=== PATIENT | female | born 1940 | race Caucasian/White ===

== ENCOUNTER 2020-04-11 16:23 | Emergency (ER) | payer OTHER ==
[~2020-04-11] VITALS: Ht 167.6 cm; Wt 81.7 kg
[2020-04-11] MEDS ORDERED: TYLENOL325 M1 PO (16:35)
[2020-04-11] MEDS ORDERED: GLIPIZIDE 10 MG10 MG PO (16:36)
[2020-04-11] MEDS ORDERED: ASA81BEC PO (16:36)
[2020-04-11] MEDS ORDERED: PRINIVIL10 MG PO (16:38)
[2020-04-11] MEDS ORDERED: JANUVIA50 MG PO (16:38)
[2020-04-11] MEDS ORDERED: REGLAN 5 MG TAB5 MG PO (16:39)
[2020-04-11] MEDS ORDERED: MULTIPLE VITAM1 EAC2 PO (16:39)
[2020-04-11] MEDS ORDERED: MOBIC7.5 MG PO (17:06)
[2020-04-11] MEDS ORDERED: TRAMADOL 50 MG50 MG PO (17:06)
[2020-04-11 17:40] VITALS: BP 176/84
== END 2020-04-11 17:40 ==
LOC: ER 16:23
DX: M54.5 Low back pain (principal); G89.29 Other chronic pain; R53.1 Weakness; I10 Essential (primary) hypertension; E78.5 Hyperlipidemia, unspecified; E11.9 Type 2 diabetes mellitus without complications; Z86.73 Personal history of transient ischemic attack (TIA), and cerebral infarction without residual deficits; Z79.899 Other long term (current) drug therapy; Z79.82 Long term (current) use of aspirin

== ENCOUNTER 2021-03-06 00:55 | Emergency (ER) | payer OTHER ==
[~2021-03-06] VITALS: Ht 167.6 cm; Wt 74.8 kg
--- NOTE | ~2021-03-06 | EMS ---
[address] [address] EMS Patient Care Report Name: DARLYN SHOOK Room #: DEP JACKSON Bullock#: [id number] Admission: 03/06/21 Attend Phys: Discharge: 03/06/21 Date of : 39 Report #: [id number] THIS REPORT FOR: //name// Report Transmitted: 03/07/2021 09:43 EMS Care Summary [place], [place]/[facility] Incident [id number] @ 03/06/2021 00:13 Incident Location [id number] [place] [address] 124 Patient DARLYN SHOOK Female, 80 Years 1940 Patient Address [address] [place], [place] [id number] Patient History Hypertension (HTN),Stroke/CVA,Hyperlipidemia,Depression,Chronic Pain, Patient Allergies No known allergies, Patient Medications Atorvastatin, Lisinopril, Sertraline, Aspirin, Tramadol, Chief Complaint ATRAUMATIC LLE PAIN Disposition Transported No Lights/[place] Dispatch Reason Sick Person Transported To [facility] Narrative UPON ARRIVAL WE FOUND OUR 80 YEAR OLD FEMALE PATIENT, WITH A HX OF CHRONIC PAIN AND A CVA WITH LEFT SIDE DEFICITS, LAYING IN BED AT [facility] ASSISTED LIVING WITH HER NURSE BY HER SIDE COMPLAINING OF ATRAUMATIC LLE CRAMPS/PAIN [address] [address] EMS Patient Care Report Name: DARLYN SHOOK Room #: DEP Ara#: [id number] Admission: 03/06/21 Attend Phys: Discharge: 03/06/21 Date of : 39 Report #: [id number] SINCE ABOUT 1800. STAFF STATES THEY ADMINISTERED BACLOFEN AND TRAMADOL TO THE PATIENT AT 2000 WITH NO RELIEF. STAFF REQUESTS THE PATIENT BE TRANSPORTED TO [facility] FOR EVALUATION. Initial Vitals @00:45P: 83,R: 18,BP: 137/83,Pain: 8/10,GCS: 15,SpO2: 95,Revised Trauma: 12, @00:54P: 80,R: 18,BP: 130/80,Pain: 8/10,GCS: 15,SpO2: 96,Revised Trauma: 12, Assessments @00:36MENTAL:Event Oriented,Time Oriented,Place Oriented,Person Oriented,SKIN:HEENT:Eyes: Right Pupil: 4-mm,Eyes: Left Pupil: 4-mm,Head/Face: No Abnormalities,Neck/Airway: No Abnormalities,LUNG SOUNDS:General: No Abnormalities,ABDOMEN:General: No Abnormalities,PELVIS//GI:No Abnormalities,EXTREMITIES:Left Leg: Other,Left Arm: No Abnormalities,Right Arm: No Abnormalities,Right Leg: No Abnormalities,PULSE:Radial: 2+ Normal,NEURO:Weakness Left-Sided, Impression Acute Pain, not elsewhere classified Procedures @00:36ALS AssessmentResponse: UnchangedSucceeded Timeline 00:12,Call Received 00:12,Dispatch Notified 00:13,Dispatched 00:15,En Route 00:32,On Scene 00:36,At Patient 00:36,ALS Assessment,Response: UnchangedSucceeded, 00:45,BP: 137/83 M,PULSE: 83,RR: 18 R,SPO2: 95 Ox,ETCO2: ,BG: ,PAIN: 8,GCS: 15, 00:46,Depart Scene 00:53,At Destination 00:54,BP: 130/80 M,PULSE: 80,RR: 18 R,SPO2: 96 Ox,ETCO2: ,BG: ,PAIN: 8,GCS: 15, 01:03,Call Closed Disclaimer v1.1 Copyright 2020 [employer] This EMS Care Summary contains data elements from the applicable legal record (which may be displayed differently). It is designed to provide pertinent information for the following purposes: continuity of care, clinical quality, and state data reporting. The complete legal record is available to ED staff and administrators of the receiving hospital in [employer]'s Patient Tracker. All data is provided "as is."
[~2021-03-06 00:55] MED LIST: ASA81BEC PO; GLIPIZIDE 10 MG10 MG PO; JANUVIA50 MG PO; MOBIC7.5 MG PO; MULTIPLE VITAM1 EAC2 PO; PRINIVIL10 MG PO; REGLAN 5 MG TAB5 MG PO; TRAMADOL 50 MG50 MG PO; TYLENOL325 M1 PO
[2021-03-06 02:26] LABS: BASOPHILS 0.7 % (0.0-2.0); EOSINOPHILS 2.6 % (0.0-3.0); HEMATOCRIT 31.2 % (37.0-47.0); HEMOGLOBIN 10.4 gm/dL (12.0-15.0); LYMPHOCYTES 20.2 % (24.0-44.0); MCHC 33.4 g/dL (28.0-37.0); MCV 86.9 fL (80.0-100.0); MONOCYTES 9.1 % (1.0-8.0); PLATELET COUNT 298 thou/uL (150-400); POLYS 67.4 % (36.0-66.0); RDW 14.4 % (10.5-14.5); WBC 8.9 thou/uL (4.0-11.0)
[2021-03-06 02:28] LABS: CREATININE 1.1 mg/dL (0.6-1.0); POTASSIUM 3.9 mmol/L (3.5-5.1)
[2021-03-06 02:34] LABS: ALBUMIN 2.3 g/dL (3.4-5.0); MAGNESIUM 1.9 mg/dL (1.8-2.4); TOTAL BILIRUBIN 0.3 mg/dL (0.2-1.0)
[2021-03-06 03:47] VITALS: BP 158/67
== END 2021-03-06 03:48 | disposition home or self-care (01) ==
LOC: ER 00:55
PROVIDERS: Emergency Medicine
DX: M79.605 Pain in left leg (principal); R25.2 Cramp and spasm; M62.831 Muscle spasm of calf; I10 Essential (primary) hypertension; E78.5 Hyperlipidemia, unspecified; E11.9 Type 2 diabetes mellitus without complications; Z79.899 Other long term (current) drug therapy

== ENCOUNTER 2021-03-13 21:16 | Emergency (ER) | payer OTHER ==
[~2021-03-13] VITALS: Ht 167.6 cm; Wt 74.8 kg
--- NOTE | ~2021-03-13 | EMS ---
[address] [address] EMS Patient Care Report Name: DARLYN SHOOK Room #: DEP JACKSON Bullock#: [id number] Admission: 03/13/21 Attend Phys: Discharge: 03/14/21 Date of : 39 Report #: [id number] THIS REPORT FOR: //name// Report Transmitted: 03/14/2021 13:06 EMS Care Summary [place], [place]/[facility] Incident [id number] @ 03/13/2021 20:30 Incident Location [id number] [place] [address] 124 Patient DARLYN SHOOK Female, 80 Years 1940 Patient Address [id number] [place] [address] 124 [place] [address] Patient History Stroke/CVA,Type 2 Diabetes, Patient Allergies No known allergies, Patient Medications Tramadol, Chief Complaint injured left shoulder Disposition Transported No Lights/[place] Dispatch Reason Falls Transported To [facility] Narrative FD Medic 36 arrived on scene to find a 80 y/o female laying prone and complaining of left shoulder pain. Patient stated she slid out of her chair and onto the ground, no loss of consciousness reported. PT had suffered a stroke [address] [address] EMS Patient Care Report Name: DARLYN SHOOK Room #: DEP Karla.#: [id number] Admission: 03/13/21 Attend Phys: Discharge: 03/14/21 Date of : 39 Report #: [id number] approximately 10 years prior, left side a effected. No gross deformity was noted to left shoulder. No other injuries noted, PT denied neck and back pain. PT was lifted to the ambulance cot by [facility] personnel without incident. Upon assessment of the injured shoulder patient said she "felt tingling" upon palpation, [place] staff reported this is not abnormal. Patient moved to ambulance and loaded without incident. Vitals obtained x2. En route continued to monitor the patient. No significant changes. RR to ER. Arrived, PT taken to ER #6 and moved to their bed without incident. Patient care and report to ER staff. Initial Vitals @20:59P: 91,R: 16,BP: 156/89,Pain: 2/10,GCS: 15,CO: 1,SpO2: 97,Revised Trauma: 12, @21:00P: 91,R: 14,BP: 159/78,Pain: 2/10,GCS: 15,CO: 0,SpO2: 95,Revised Trauma: 12, Assessments @21:03MENTAL:Event Oriented,Time Oriented,Person Oriented,Place Oriented,SKIN:HEENT:LUNG SOUNDS:ABDOMEN:PELVIS//GI:No Abnormalities,EXTREMITIES:Left Arm: Other,Left Arm: WANDA,Left Leg: No Abnormalities,Right Leg: No Abnormalities,PULSE:Radial: 2+ Normal,NEURO:No Abnormalities, Impression Injury of Shoulder or Upper Arm Procedures @20:43BLS AssessmentResponse: Unchanged@20:43ALS AssessmentResponse: UnchangedSucceeded@20:47StretcherResponse: Unchanged Timeline 20:29,Call Received 20:29,Dispatch Notified 20:30,Dispatched 20:31,En Route 20:41,On Scene 20:43,At Patient 20:43,BLS Assessment,Response: Unchanged 20:43,ALS Assessment,Response: UnchangedSucceeded, 20:47,Stretcher,Response: Unchanged 20:59,BP: 156/89 M,PULSE: 91,RR: 16 R,SPO2: 97 Ox,ETCO2: ,BG: ,PAIN: 2,GCS: 15, 21:00,BP: 159/78 M,PULSE: 91,RR: 14 R,SPO2: 95 Ox,ETCO2: ,BG: ,PAIN: 2,GCS: 15, 21:12,Depart Scene 21:12,At Destination 21:46,Call Closed Disclaimer [address] [address] EMS Patient Care Report Name: DARLYN SHOOK Room #: DEP JACKSON Bullock#: [id number] Admission: 03/13/21 Attend Phys: Discharge: 03/14/21 Date of : 39 Report #: [id number] v1.1 Copyright 2020 [employer] This EMS Care Summary contains data elements from the applicable legal record (which may be displayed differently). It is designed to provide pertinent information for the following purposes: continuity of care, clinical quality, and state data reporting. The complete legal record is available to ED staff and administrators of the receiving hospital in [email or web address]'s Patient Tracker. All data is provided "as is."
[2021-03-13] MEDS ORDERED: LIPITOR10 MG PO (21:23)
[2021-03-13] MEDS ORDERED: GLIPIZIDE 10 MG10 MG PO (21:23)
[2021-03-13] MEDS ORDERED: JANUVIA 50 MG T50 M1 PO (21:23)
[2021-03-13] MEDS ORDERED: OZOBAX5 MG/5 ML PO (21:24)
[2021-03-13] MEDS ORDERED: SERTRALINE HCL100 MG PO (21:24)
[2021-03-14 01:09] VITALS: BP 146/93
== END 2021-03-14 01:43 ==
LOC: ER 21:16
DX: M25.512 Pain in left shoulder (principal); R10.2 Pelvic and perineal pain; I10 Essential (primary) hypertension; E78.5 Hyperlipidemia, unspecified; E11.9 Type 2 diabetes mellitus without complications; Z79.2 Long term (current) use of antibiotics; Z79.82 Long term (current) use of aspirin; Z79.899 Other long term (current) drug therapy; Z86.73 Personal history of transient ischemic attack (TIA), and cerebral infarction without residual deficits; W05.0XXA Fall from non-moving wheelchair, initial encounter; Y93.89 Activity, other specified; Y92.89 Other specified places as the place of occurrence of the external cause; Y99.8 Other external cause status

== ENCOUNTER 2021-07-12 11:38 | Inpatient (IN) | payer OTHER ==
[~2021-07-12] VITALS: Ht 167.6 cm; Wt 66.2 kg
--- NOTE | ~2021-07-12 | EMS ---
[facility] [address] [place] [address] EMS Patient Care Report Name: DARLYN SHOOK Room #: REG JACKSON Bullock#: [id number] Admission: 07/12/21 Attend Phys: Discharge: Date of : 39 Report #: [id number] THIS REPORT FOR: //name// Report Transmitted: 07/12/2021 14:41 EMS Care Summary [place], [place]/[facility] Incident [id number] @ 07/12/2021 10:58 Incident Location [address] Patient DARLYN SHOOK Female, 80 Years 1940 Patient Address [id number] [place] [address] [address] [place] [address] Patient History Hypertension (HTN),Stroke/CVA,Hyperlipidemia, Patient Allergies No known allergies, Chief Complaint pt is less verbal than normal Disposition Transported No Lights/[place] Dispatch Reason Sick Person Transported To [facility] Narrative pt found seated in wheelchair. she is alert, sitting quietly on our arrival. staff states pt is "not herself" today. last known normal was yesterday @ 1400. they state pt is normally confused but talks and is usually angry. they state that today she will not talk and is acting "sweetly". pt has a L side deficit from a prior stroke. she also has a rash on her L arm and chest that [facility] [address] [place] [address] EMS Patient Care Report Name: DARLYN SHOOK Room #: REG Karla.#: [id number] Admission: 07/12/21 Attend Phys: Discharge: Date of : 39 Report #: [id number] has been spreading. they want labs done on pt and results will be faster if done thru the ER. As soon as we pick pt up and place her on the cot, she starts talking. she wants to know where she is going, does not want to go to hospital, is able to tell us President, VAULT INSTALLER, name, age, etc but also confused about other simple questions like month and her BD. pt denies pain or illess. pt mental state at that time appears to staff to be more normal but family and staff still want her checked. pt to be eval at [facility]. pt to unit, VS, transport w/o change. Initial Vitals @11:18P: 92,R: 18,BP: 140/80,Pain: 0/10,GCS: 13,Glucose: 208,SpO2: 96,Revised Trauma: 12, Assessments @11:06MENTAL:Confused,Other,Person Oriented,Place Oriented,SKIN:No Abnormalities,HEENT:Head/Face: No Abnormalities,LUNG SOUNDS:ABDOMEN:PELVIS//GI:EXTREMITIES:Left Arm: Paralysis,Left Arm: Other,PULSE:NEURO:Weakness Left-Sided,Other, Impression Altered Mental Status Procedures @11:06 ALS Assessment Response: Unchanged @11:15 3-Lead ECG Response: Unchanged @11:09 Stretcher Response: Unchanged Timeline 10:57,Call Received 10:57,Dispatch Notified 10:58,Dispatched 10:58,En Route 11:04,On Scene 11:06,At Patient 11:06,ALS Assessment,Response: Unchanged 11:09,Stretcher,Response: Unchanged 11:15,3-Lead ECG,Response: Unchanged 11:18,BP: 140/80 M,PULSE: 92,RR: 18 R,SPO2: 96 Ox,ETCO2: ,B,PAIN: 0,GCS: 13, 11:24,Depart Scene 11:35,At Destination 11:52,Call Closed Disclaimer v1.1 Copyright 2020 [employer] [facility] [address] [place] [address] EMS Patient Care Report Name: DARLYN SHOOK Room #: REG [facility].#: [id number] Admission: 07/12/21 Attend Phys: Discharge: Date of : 39 Report #: [id number] This EMS Care Summary contains data elements from the applicable legal record (which may be displayed differently). It is designed to provide pertinent information for the following purposes: continuity of care, clinical quality, and state data reporting. The complete legal record is available to ED staff and administrators of the receiving hospital in [employer]'s Patient Tracker. All data is provided "as is."
[2021-07-12 11:38] VITALS: BP 105/77
[~2021-07-12 11:38] MED LIST changes: +JANUVIA 50 MG T50 M1 PO; +LIPITOR10 MG PO; +OZOBAX5 MG/5 ML PO; +SERTRALINE HCL100 MG PO
[2021-07-12 12:08] LABS: URINE BLOOD 1+ (Negative); URINE CLARITY CLOUDY; URINE COLOR YELLOW; URINE GLUCOSE-RANDOM* NEGATIVE (Negative); URINE KETONES TRACE (Negative); URINE NITRITE-REFLEX NEGATIVE (Negative); URINE PROTEIN (DIPSTICK) 2+ (Negative); URINE SPECIFIC GRAVITY >= 1.030 (1.005-1.035); URINE UROBILINOGEN 0.2 E.U./dl (0.2-1.0)
[2021-07-12 12:10] LABS: URINE LEUKOCYTES-REFLEX 2+ (Negative)
[2021-07-12 12:11] LABS: ICTOTEST (BILI CONFIRMATORY) Negative (Negative); URINE BILIRUBIN NEGATIVE (Negative)
[2021-07-12 12:11] LABS: ABSOLUTE NEUTROPHILS 10.8 thou/uL (1.4-8.2); BASOPHILS 0.6 % (0.0-2.0); HEMATOCRIT 36.1 % (37.0-47.0); HEMOGLOBIN 11.7 gm/dL (12.0-15.0); LYMPHOCYTES 13.8 % (24.0-44.0); MCH 29.5 pg (26.0-34.0); MCHC 32.5 g/dL (28.0-37.0); MCV 90.7 fL (80.0-100.0); MONOCYTES 6.8 % (1.0-8.0); PLATELET COUNT 330 thou/uL (150-400); POLYS 77.8 % (36.0-66.0); RBC 3.98 mil/uL (4.20-5.00); RDW 15.1 % (10.5-14.5); WBC 13.9 thou/uL (4.0-11.0)
[2021-07-12 12:20] LABS: CALCIUM 9.5 mg/dL (8.5-10.1); CREATININE 2.5 mg/dL (0.6-1.0)
[2021-07-12 12:22] LABS: POTASSIUM 5.6 mmol/L (3.5-5.1)
[2021-07-12 12:26] LABS: ALBUMIN 2.6 g/dL (3.4-5.0); TOTAL BILIRUBIN 0.5 mg/dL (0.2-1.0); TOTAL PROTEIN 7.8 g/dL (6.4-8.2)
[2021-07-12 12:34] LABS: CASTS None Seen /LPF (None Seen); CRYSTALS None Seen /LPF (None Seen); SQUAMOUS 4-10 Moderate /LPF (0-3); URINE RBC 1-2 Rare /HPF (NONE SEEN); URINE WBC-REFLEX >25 Many /HPF (0-5)
[2021-07-12 12:55] LABS: CALCIUM 9.6 mg/dL (8.5-10.1); CREATININE 2.6 mg/dL (0.6-1.0)
[2021-07-12 12:56] LABS: POTASSIUM 4.5 mmol/L (3.5-5.1)
[2021-07-12 13:40] LABS: URINE BILIRUBIN 2+ (Negative); URINE BLOOD 3+ (Negative); URINE CLARITY CLOUDY; URINE COLOR YELLOW; URINE GLUCOSE-RANDOM* NEGATIVE (Negative); URINE KETONES TRACE (Negative); URINE NITRITE-REFLEX NEGATIVE (Negative); URINE PROTEIN (DIPSTICK) 1+ (Negative); URINE SPECIFIC GRAVITY >= 1.030 (1.005-1.035); URINE UROBILINOGEN 0.2 E.U./dl (0.2-1.0)
[2021-07-12 13:48] LABS: URINE LEUKOCYTES-REFLEX 2+ (Negative)
[2021-07-12] MEDS ORDERED: ACID CONTROLLER20 MG PO (13:56)
[2021-07-12 13:58] LABS: SQUAMOUS 4-10 Moderate /LPF (0-3)
[2021-07-12] MEDS ORDERED: TRAMADOL 50 MG50 MG PO (13:58)
[2021-07-12 14:00] LABS: CASTS None Seen /LPF (None Seen); URINE WBC-REFLEX >25 Many /HPF (0-5)
[2021-07-12 14:01] LABS: CRYSTALS None Seen /LPF (None Seen)
--- NOTE | 2021-07-12 16:05 | EKG ---
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 07/12/21 1605 [id number] [id number] Robert Lanier MD, FACC /EPI
[2021-07-12 16:30] LABS: FOLIC ACID 24.2 ng/mL (8.6-58.9)
[2021-07-13 03:39] LABS: ABSOLUTE NEUTROPHILS 6.1 thou/uL (1.4-8.2); BASOPHILS 1.1 % (0.0-2.0); EOSINOPHILS 1.6 % (0.0-3.0); HEMATOCRIT 30.1 % (37.0-47.0); LYMPHOCYTES 17.6 % (24.0-44.0); MCH 29.8 pg (26.0-34.0); MCV 90.2 fL (80.0-100.0); MONOCYTES 5.7 % (1.0-8.0); PLATELET COUNT 272 thou/uL (150-400); RBC 3.34 mil/uL (4.20-5.00); RDW 15.3 % (10.5-14.5); WBC 8.3 thou/uL (4.0-11.0)
[2021-07-13 03:58] LABS: ALBUMIN 2.3 g/dL (3.4-5.0); CALCIUM 8.6 mg/dL (8.5-10.1); PHOSPHORUS 3.6 mg/dL (2.5-4.9); POTASSIUM 3.8 mmol/L (3.5-5.1)
[2021-07-13 04:14] LABS: CREATININE 1.5 mg/dL (0.6-1.0)
[2021-07-13 05:07] LABS: GLYCOHEMOGLOBIN (HGB A1C) 7.1 % (4.8-5.6)
[2021-07-13 11:44] VITALS: BP 151/68
[2021-07-13 12:06] VITALS: BP 169/73
--- NOTE | 2021-07-13 12:18 | NUR ---
Pt transferred to unit from ED. Pt a&ox2. Screams continuosly. Son is DPOA and is at bedside. Son states the screaming is normal behavior for the patient but is has never been this bad. Pt has dementia baseline but is usually more coherent. IVF infusing. Pressure sore noticed on left heel. Will take picture for the chart and consult wound care. Admission completed with son's help. Call light within reach. Fall precautions in place. Will continue to monitor.
--- NOTE | 2021-07-13 16:19 | NUR ---
ORDERS RECEIVED FOR PT EVAL AND TREAT EARLIER HOWEVER JUST RECEIVED CANCEL PT ORDER FROM DR. GUTIÉRREZ. PER NOTES, Pt IS GOING COMFORT CARE.
[2021-07-13 17:56] VITALS: BP 146/96
--- NOTE | 2021-07-14 01:24 | NUR ---
UPON SHIFT REPORT, PT SLEEPING, PT SON AT BEDSIDE REPORTING PT WITHOUT PO INTAKE FOR DAYS AND INCREASED SLEEPING, PLAN OF CARE DISCUSSED INCLUDING PLACEMENT OF HAYS CATHETER, PT SON AGREEABLE TO PLACEMENT DUE TO PT HAVING INCREASED PAIN AND ANXIETY WITH REPOSITIONING. RADIO STATION ENGINEER TREATMENT COORDINATOR NOTIFIED, RECEIVED ORDERS TO PLACE HAYS FOR COMFORT CARE. UPON SHIFT ASSESSMENT, PT SLEEPING, AROUSES TO VERBAL AND TACTILE STIMULATION, FALLING BACK TO SLEEP EASILY. PT NOTED TO SCREAM, SAY 'LEAVE ME ALONE', TENSE, GRIMACE AND DRAW LEGS UP WITH TACTILE STIMULATION AND REPOSITIONING, FLACC OF 7. PT RECEIVING PRN IV MORHINE Q1HR AND PRN IV ATIVAN Q1HR ALONG WITH SCHEDULED IV ATIVAN Q6HR WHEN NOT SEDATED. 16FR HAYS CATHETER PLACED WITHOUT ISSUE, YELLOW URINE NOTED. RESTING IN BED THROUGHOUT SHIFT, FREQUENT REPOSITIONING ENCOURAGED, PT REFUSING REPOSITIONING DUE TO WORSENED PAIN, PT PREFERS TO LAY ON RIGHT SIDE, CONTRACTURES NOTED. SENSATION INTACT, CAPILLARY REFILL LESS THAN 3SEC, PERIPHERAL PULSES PALPABLE IN ALL EXTREMITIES. RASH NOTED TO SKIN, ON ABDOMEN, BACK, BOTTOM, AND RLE. SKIN CLEANSED, BARRIER CREAM APPLIED. PT ENCOURAGED TO NOTIFY STAFF FOR ALL NEEDS, CALL LIGHT WITHIN REACH, BED ALARM ON, BED LOCKED IN LOWEST POSITION, ROOM REMAINS NEAR NURSES STATION, FREQUENT MONITORING WILL CONTINUE.
[2021-07-14 08:21] VITALS: BP 159/87
--- NOTE | 2021-07-14 09:44 | NUR ---
Assumed care of pt at 0700. Pt a&ox2. Sleeping. Naranjo catheter in place. Comfort care. Talked to pt's family and updated on her status. Call light within reach. Will continue to monitor.
--- NOTE | 2021-07-15 02:50 | NUR ---
PT ALERT TO SELF. WAKES UP WHEN SHE IS TOUCHED. REFUSES TO HAVE VITALS DOME. LEFT SIDED FLACIDITY-LEFT HAND PLACED ON PILLOW, LEFT LEG CONTRACTED. PT GIVEN SCHEDULED [id number] NOW SHE IS IN THERE YELLING OUT AND MUMBLING WORDS.
--- NOTE | 2021-07-15 16:37 | NUR ---
PT ASSESSED AT START OF SHIFT. PT AWAKE AT TIMES MOANING OUT. DAUGHTER AND SON KEEPING BOOTH AT BEDSIDE. PT HALLUCINATING AT TIMES. FAMILY REQUESTING PRN DOSE OF ATTVAN WHICH HELPED. PT RESTING MORE PEACEFUL AT PRESENT. SHE HAS TAKEN SOME JUICE AND WATER FROM FAMILY THIS AM.
--- NOTE | 2021-07-16 04:08 | NUR ---
PT LYING IN BED. LORAZEPAM GIVEN FOR COMFORT. FREQUENT OBSERVATION.
--- NOTE | 2021-07-16 08:25 | NUR ---
COMFORT CARE. VS-RESP 50, BP 186/107, SLEEPING BUT GROANING. MORPHINE 2 MG GIVEN FOR PAIN. SLEEPING COMFORTABLE WITH DAUGHTER MANOLO AT BEDSIDE. ROOM AIR. RIGHT HAND IV SALINE LOCKED. LEFT HAND AND ARM 2+ EDEMA-RESTING, AND ELEVATED ON PILLOW. INCONT BOWEL. HAYS-YELLOW URINE. LEFT LEG CONTRACTED. SCHEDULED ATIVAN.
--- NOTE | 2021-07-16 09:22 | NUR ---
WOUND CARE CONSULT; THE PATIENT IS ON COMFORT MEASURES ONLY. THERE IS A STAGE (2) PRESSSURE INJURY TO THE LEFT MEDIAL HEEL WHICH HAS A SCANT AMOUNT OF SEROSANGINOUS DRAINAGE WITH NO ODOR. THE SACRUM HAS REDNESS CONSISTANT WITH A STAGE 1 PRESSURE INJURY. RECCOMMENDATIONS; -A PRAFO BOOT TO THE LEFT FOOT. -APPLY XEROFORM, BORDER FOAM, CHANGE M//W/F -LOW AIR LOSS BED PUMP FOR PRESSURE REDISTRIBUTION AND COMFORT. DAUGHTER PRESENT.
--- NOTE | 2021-07-16 09:39 | NUR ---
Low leatha identification and pt with wound care consult for sacral wound. Pt no code status. Chart reviewed and comfort care orders. Defer further follow up at this time. ST has assessed and recommending [facility] soft diet.
--- NOTE | 2021-07-16 11:09 | NUR ---
DX: UIT. 80-year-old female came to ED via EMS from assisted living facility at [facility] for evaluation of a change AMS. Past medical history known for CVA with left-sided weakness, hypertension, hyperlipidemia, diabetes. Son reports patient is usually alert during oriented x2/3, able to hold a conversation with her. Currently patient does not recognize son. Discussed during los with the attending physician, cont. on comfort care. Unable to visit with Rosalind related to her resting with her eyes closed. Spoke with her son black # [phone]. No concerns voiced. Will cont. following as needed.
--- NOTE | 2021-07-17 01:51 | NUR ---
PT IS A/O X1. HAS NOT WOKE THIS SHIFT AND HAS NOT SPOKEN A WORD. CONTINUES ON COMFORT CARE. AT FAMILY REQUEST VITALS NOT TAKEN. REPOSITIONED NEEDED FOR COMFORT. PRN PAIN MEDICATION GIVEN DIRECTED. FALL PRECUATIONS IN PLACE, CALL LIGHT IS WITHIN REACH
--- NOTE | 2021-07-17 10:02 | NUR ---
COMFORT CARE. SLEEPING COMFORTABLY. LEFT HAND AND ARM 2+ EDEMA, RESTING AND ELEVATED ON PILLOW. RIGHT HAND IV SALINE LOCKED. INCONT OF BOWEL, HAYS IN PLACE, MINIMAL ANNABELLE URINE NOTED IN BAG. SCHEDULED ATIVAN q 6HRS. FAMILY AT BEDSIDE.
--- NOTE | 2021-07-17 11:33 | NUR ---
Discussed during los with the attending physician. New order for referral for [facility] hospice [facility]. [place] is currently on comfort care. Referral sent to [facility].
--- NOTE | 2021-07-17 22:04 | NUR ---
ASSUMED CARE OF PT AT 1915. PT IS SLEEPING & HAS BEEN SLEEPING SINCE THE START OF THE SHIFT. FAMILY & HOSPICE NURSE WAS AT BED SIDE FOR SEVERAL HOURS. REQUESTED COMFORT MEDS FOR PT. FAMILY REQUESTED THAT VITALS NOT BE TAKEN NOR THAT THE PT BE MOVED. DRSG TO LEFT HEEL DRSG C/D/I. PT HAS SACRAL WOUND TO BOTTOM. NOT OBSERVED, PER FAMILY REQUEST. PT IS COMFORTABLE. HAYS INTACT. FREQUENT CHECKS CONDUCTED & HOURLY ROUNDING. FOR CHANGES IN STATUS CONTACT [facility]. WILL CONTINUE TO MONITOR.
--- NOTE | 2021-07-18 10:05 | NUR ---
Cm checking with [facility] hospice if kaylee family signed on to hospice yesterday evening. Her son did agree with [facility] hospice here at [facility]. CM notified attending physician during los meeting today.
--- NOTE | 2021-07-18 11:04 | NUR ---
PT ASSESSED AT START OF SHIFT. PT VERY WARM TO TOUCH. RESP RAPID AND SHALLOW. NOT RESPONSIVE TO VERBAL STIMULI. NO MOTTLING NOTED AT THIS TIME. URINE OUTPUT ADEQUATE. PT APPEARS COMFORTABLE. FAMILY NOT AT BEDSIDE CURRENTLY.
== END 2021-07-18 13:15 | disposition hospice, inpatient (51) | DRG 871 ==
LOC: ER 11:38 → EROBS 16:01 → 4S 16:01
PROVIDERS: Emergency Medicine; Nurse Practitioner; ADMIT Internal Medicine; ATTEND Internal Medicine
DX: A41.9 Sepsis, unspecified organism (principal); N17.0 Acute kidney failure with tubular necrosis; G92.8 Other toxic encephalopathy; N39.0 Urinary tract infection, site not specified; E44.0 Moderate protein-calorie malnutrition; I69.354 Hemiplegia and hemiparesis following cerebral infarction affecting left non-dominant side; R31.9 Hematuria, unspecified; K31.84 Gastroparesis; E11.43 Type 2 diabetes mellitus with diabetic autonomic (poly)neuropathy; Z20.822 Contact with and (suspected) exposure to COVID-19; I10 Essential (primary) hypertension; E78.5 Hyperlipidemia, unspecified; G89.29 Other chronic pain; E86.0 Dehydration; M54.9 Dorsalgia, unspecified; Z66 Do not resuscitate; R53.81 Other malaise; Z79.82 Long term (current) use of aspirin; Z79.899 Other long term (current) drug therapy; Z90.710 Acquired absence of both cervix and uterus; Z68.23 Body mass index [BMI] 23.0-23.9, adult; Z51.5 Encounter for palliative care
CPT/HCPCS: 10102

== ENCOUNTER 2021-07-18 12:45 | Inpatient (IN) | payer OTHER ==
--- NOTE | 2021-07-18 12:00 | NUR ---
Chart review. 80 year old female and was moved to comfort care. She lives at [facility]. Her son met with [facility] hospice and have chosen to move to [facility] here. She will remain in the same room. Will cont following if needs arise.
[~2021-07-18 12:45] MED LIST changes: +ACID CONTROLLER20 MG PO
--- NOTE | 2021-07-18 21:59 | NUR ---
ASSUMED CARE OF PATIENT AT AROUND 1915 HRS. SON IN ROOM AND TALKED ABOUT EXPECTATIONS.PT IS UNRESPONSIVE. TACHYPNEIC.TIMED LORAZEPAM IVP GIVEN. SON DOES NOT WANT ANYHTING THAT WOULD CAUSE PT PAIN INCLUDING REPOSITIONING OR TAKING VITALS. HAYS STILL WITH DARK YELLOW OUTPUT. ROOM AIR.BLE AND BUE WARM TO TOUCH.ONTINUING TO PROVIDE COMFORT CARE.
[2021-07-19 08:48] VITALS: BP 147/84
[2021-07-19 08:50] VITALS: BP 128/76
--- NOTE | 2021-07-19 09:19 | NUR ---
Assumed care of pt at 0700. Pt on comfort care. Not responding. On scheduled lorazepam IV for comfort. Naranjo catheter in place.
[2021-07-19 15:28] VITALS: BP 137/53
--- NOTE | 2021-07-19 20:27 | NUR ---
Unresponsive. Son in room. Morphine started for air hunger. Kerri badillo RN with hospice spoke with physician and orders initiated. solar tech took vitals as follows : T 100.6,HR 125,RR 27,BP 123/83 02 74% on RA. negative babinski, negative pupil response.
== END 2021-07-20 06:41 | DRG 682 ==
LOC: 4S 12:45 → ADMC 12:49 → 4S 07-20 06:41
PROVIDERS: ADMIT Hospitalist; ATTEND Hospitalist
DX: N17.0 Acute kidney failure with tubular necrosis (principal); G92.8 Other toxic encephalopathy; N39.0 Urinary tract infection, site not specified; E44.0 Moderate protein-calorie malnutrition; I69.354 Hemiplegia and hemiparesis following cerebral infarction affecting left non-dominant side; E11.43 Type 2 diabetes mellitus with diabetic autonomic (poly)neuropathy; K31.84 Gastroparesis; F03.90 Unspecified dementia, unspecified severity, without behavioral disturbance, psychotic disturbance, mood disturbance, and anxiety; I10 Essential (primary) hypertension; E78.5 Hyperlipidemia, unspecified; G89.29 Other chronic pain; M54.50 Low back pain, unspecified; R53.81 Other malaise; Z51.5 Encounter for palliative care
CPT/HCPCS: 10102